=== PATIENT | female | born 2000 | race Caucasian/White ===

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

== ENCOUNTER 2019-05-12 19:10 | Emergency (ER) | payer SELFPAY ==
[~2019-05-12] VITALS: Ht 157.5 cm; Wt 77.9 kg
[2019-05-12 19:12] VITALS: BP 113/80
[2019-05-12] MEDS ORDERED: AZITHROMYCIN 500 MG TABLET PO ONE (20:00)
[2019-05-12] MEDS ORDERED: CEFTRIAXONE 250 MG IM ONE (20:00)
[2019-05-12 20:03] LABS: CLUE CELLS NONE SEEN (NONE SEEN); WET PREP WBCS FEW (FEW)
[2019-05-12 20:23] LABS: HCG UR SG 1.023 (1.003-1.030); MICROSCOPIC NOT IND
[2019-05-12 20:25] LABS: CULTURE INDICATED? NO
[2019-05-12] MEDS ORDERED: AZITHROMYCIN 250 MG TABLET ONE (20:32)
[2019-05-12] MEDS ORDERED: CEFTRIAXONE 250 MG ONE (20:32)
== END 2019-05-12 21:02 | disposition home or self-care (01) ==
LOC: ED 20:59
DX: N76.0 Acute vaginitis (principal)
CPT/HCPCS: 81003; 81025; 87210; 87491; 87591; 87808; 96372; 99283; J0696

== ENCOUNTER 2020-10-12 12:46 | Emergency (ER) | payer MEDICAID ==
[~2020-10-12] VITALS: Ht 157.5 cm; Wt 70.2 kg
[2020-10-12 12:48] VITALS: BP 105/78
[2020-10-12] MEDS ORDERED: DEXAMETHASONE 4 MG TABLET ONE (13:57)
[2020-10-12] MEDS ORDERED: DEXAMETHASONE 4 MG TABLET PO ONE (14:00)
[2020-10-12 14:10] LABS: BASOPHILS % (AUTO) 0 % (0-1); EOSINOPHILS % (AUTO) 1 % (1-7); LYMPHOCYTES % (AUTO) 16 % (22-44); MEAN CORPUSCULAR HEMOGLOBIN 25.8 pg (27.0-34.8); MEAN CORPUSCULAR HGB CONC 32.2 g/dL (32.4-35.8); MONOCYTES % (AUTO) 5 % (2-9); NEUTROPHILS % (AUTO) 79 % (42-75); PLATELET COUNT 344 x10^3/uL (130-400); RED BLOOD COUNT 4.53 x10^6/uL (3.82-5.3); RED CELL DISTRIBUTION WIDTH 16.4 % (9.6-15.2)
[2020-10-12 14:12] LABS: ALBUMIN 4.3 g/dL (3.4-5.0); ANION GAP 5 mmol/L (5-15); CALCIUM 9.1 mg/dL (8.5-10.1); CHLORIDE 109 mmol/L (98-107); CREATININE 0.71 mg/dL (0.55-1.02)
[2020-10-12 14:32] LABS: MD NO
== END 2020-10-12 14:40 | disposition home or self-care (01) ==
LOC: ED 13:59
DX: J02.0 Streptococcal pharyngitis (principal)
CPT/HCPCS: 36415; 80048; 82040; 84703; 85025; 86308; 99283